=== PATIENT | female | born 1930 | race Caucasian/White ===

== ENCOUNTER 2017-02-01 10:09 | Outpatient (CLI) ==
[2015-10-25 09:52] VITALS: BMI 32.5
--- NOTE | 2017-02-01 11:39 | CT ---
Exam: CT head without contrast. HISTORY: Head injury, fall. Dizziness and nausea after passing out and hitting face January 24. Procedures: 5 mm contiguous axial images were obtained through the skull without the use of contras t. Comparison: MRI of the brain 03/26/[address] of the head 12/13/2007. FINDINGS: There is redemonstration of mild prominence of the bilateral lateral ventricles and cereb ral sulci. There is mild diffuse periventricular and deep white matter hypodensity.There is no intr acranial hemorrhage, mass effect, hydrocephalus, extra-axial fluid collection or midline shift. The ventricles and basal cisterns are patent. There is no evidence of acute large vessel infarct. Bone windows demonstrate normal aeration of the mastoid air cells and the visualized portions of the paranasal sinuses. Atherosclerotic calcifications are noted. There is no acute fracture. IMPRESSION: No acute intracranial process. 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
== END 2017-02-01 10:10 | disposition home or self-care (01) ==
LOC: RAD 10:09
PROVIDERS: ATTEND Internal Medicine
DX: S09.90XA Unspecified injury of head, initial encounter (principal); W19.XXXA Unspecified fall, initial encounter

== ENCOUNTER 2017-03-06 14:46 | Emergency (ER) ==
[2017-03-06 14:53] VITALS: BP 167/69; TEMP 98.5; BMI 31.7
--- NOTE | 2017-03-06 15:11 | ED.PDOC ---
General ED Provider: Dr. VERA PARISH JR Chief Complaint: Elbow Pain/Injury Stated Complaint: pt tripped on shoe and fell. has pain, swelling and bruising to right elbow. [ End ]3 hours 98.5 82 20 97% 167/69 8/10 Time Seen by Physician: 15:04 Mode of Arrival: Walk-In Information Source: Patient Exam Limitations: No limitations Primary Care Provider: FAUSTINO SCHWARTZ Nursing and Triage Documentation Reviewed and Agree: No Review of Systems - Review Of Systems Constitutional: Reports: No symptoms Eyes: Reports: No symptoms Ears, Nose, Mouth, Throat: Reports: No symptoms Respiratory: Reports: No symptoms Cardiac: Reports: No symptoms GI: Reports: No symptoms : Reports: No symptoms Musculoskeletal: Reports: Joint pain Skin: Reports: Bruising Neurological: Reports: No symptoms Endocrine: Reports: No symptoms Hematologic/Lymphatic: Reports: No symptoms All Other Systems: Other Past Medical History - Past Medical History Endocrine: Reports: DM 2, Hypothyroid Cardiovascular: Reports: Hypertension Respiratory: Reports: COPD Hematological: Reports: None Gastrointestinal: Reports: GERD Genitourinary: Reports: CKD Neuro/Psych: Reports: Anxiety, Depression, Other (sleep apnea) Musculoskeletal: Reports: Arthritis Cancer: Reports: None Last Menstrual Period: none - Surgical History General Surgical History: Reports: Orthopedic (knee replacement bilateral, rotator cuff surgery right shoulder) - Family History Family History: Reports: Unknown - Social History Smoking Status: Former smoker Hx Substance Use: No Alcohol Screening: None Physical Exam - Physical Exam Appearance: Well-appearing Pain Distress: Moderate Eyes: ANAHI, EOMI, Conjunctiva clear ENT: Ears normal, Nose normal, Oropharynx normal Neck: Supple Respiratory: Airway patent, Breath sounds clear, Breath sounds equal, Respirations nonlabored Cardiovascular: RRR, Pulses normal, No rub, No murmur GI/: Soft, Nontender, No masses, Bowel sounds normal, No Organomegaly Musculoskeletal: Normal strength, ROM intact, No edema, No calf tenderness, Edema (right olecranon bursae) Skin: Warm, Dry Neurological: Sensation intact, Motor intact, Reflexes intact, Cranial nerves intact, Alert, Oriented Critical Care Note - Critical Care Note Total Time (mins): 0 Course - Course Orders, Labs, Meds: Orders Category Date Time Status Splint [ED SPLINT APPLICATION] .ONCE EMERGENCY 03/06/17 15:41 Ordered ELBOW, RIGHT MIN 3 VIEWS Stat RADS 03/06/17 15:06 Completed Vital Signs: Temp Pulse Resp BP Pulse Ox 03/06/17 14:47 98.5 F 82 20 167/69 H 97 Departure - Departure Time of Disposition: 15:43 Disposition: HOME SELF-CARE Discharge Problem: Hematoma Bursitis of elbow Qualifiers: Elbow bursitis location: olecranon bursitis Laterality: right Qualifier Code: ( M70.21) Olecranon bursitis, right elbow Instructions: Elbow Bursitis (ED) Condition: Fair Pt referred to PMD for follow-up: Yes Additional Instructions: [place] for pain do not drive NSAIDS may make bruising worse(Advil aleve aspirin) (81 mg of aspirin once a day should not cause any problem) recommend orthopedic evaluation for drainage of bursa may obtain referral from PMD for orthopedic evaluation return if worse if fever over 101.0 Prescriptions: Hydrocodone Bit/Acetaminophen [[place] 5-325] 1 - 2 tab PO Q6HR PRN #12 tablet PRN Reason: pain Allergies/Adverse Reactions: Allergies Iodinated Contrast- Oral and IV Dye [Iodinated Contrast Media - IV Dye] Adverse Reaction (Verified 03/06/17 14:53) scopolamine Adverse Reaction (Verified 03/06/17 14:53) Home Medications: Ambulatory Orders Aspirin [Aspirin Chewable] 81 mg PO DAILYWM 04/07/14 Levothyroxine Sodium [Synthroid] 100 mcg PO DAILY 04/07/14 Lorazepam 1 mg PO BID 04/07/14 Omeprazole [Prilosec] 20 mg PO BID 04/07/14 Multivitamin [Multi-Vitamin Daily] 1 each PO DAILY 08/25/14 Losartan Potassium 100 mg PO DAILY 10/25/15 Hydrocodone Bit/Acetaminophen [[place] 5-325] 1 - 2 tab PO Q6HR PRN #12 tablet
--- NOTE | 2017-03-06 15:39 | DI ---
EXAM: Radiographs, right elbow HISTORY: Initial presentation for right elbow injury. COMPARISON: None available. TECHNIQUE: [place]. FINDINGS: Bone mineralization is decreased. There is no fracture or dislocation. The joint spaces are maintained. Extensive posterior soft tissue swelling noted. IMPRESSION: Extensive posterior soft tissue swelling without fracture or dislocation.
== END 2017-03-06 15:56 | disposition home or self-care (01) ==
LOC: ED 14:46
DX: S50.01XA Contusion of right elbow, initial encounter (principal); M70.21 Olecranon bursitis, right elbow; W01.0XXA Fall on same level from slipping, tripping and stumbling without subsequent striking against object, initial encounter
CPT/HCPCS: 99282

== ENCOUNTER 2017-04-22 11:14 | Emergency (ER) ==
[2017-04-22 11:21] VITALS: BP 158/75; TEMP 97.5; BMI 30.5
--- NOTE | 2017-04-22 11:45 | ED.PDOC ---
General ED Provider: Dr. KIZZY SAMAYOA Chief Complaint: Abnormal Labs Stated Complaint: Called by doctor's office because routine blood tests yesterday revealed a potassium level of 5.5. Patient denies any recent new symptoms. She does get muscle cramps but that has been going on unchanged for years. Unaware of any cardiac arrhytmias or chest pain. Does have a prn potassium pill which she last took 5 days ago. Time Seen by Physician: 11:38 Mode of Arrival: Walk-In Information Source: Patient Exam Limitations: No limitations Primary Care Provider: FAUSTINO SCHWARTZ Nursing and Triage Documentation Reviewed and Agree: Yes Miscellaneous Complaint Exam - Complex/Multi-System Complaint/Exam Onset/Duration: unknown Symptoms Are: Still present (asymptomatic) Initial Severity: None Current Severity: None Location of Pain: no pain Recent Echo/LV Function: No Respiratory Distress: None JVD Present: No Tachypnea Present: No Stridor Present: No Abdominal Findings: Present: Normal findings Meningeal Signs Positive: No Focal Weakness: Present: None Focal Sensory Loss: Present: None Gait: Normal Gag Reflex Present: Yes Babinski Sign: Negative Right, Negative Left Skin Findings: Present: Normal findings Joint Swelling Present: No In-Dwelling Device Present: No Differential Diagnosis: Other (hyperkalemia) Review of Systems - Review Of Systems Constitutional: Reports: No symptoms Eyes: Reports: No symptoms Ears, Nose, Mouth, Throat: Reports: No symptoms Respiratory: Reports: No symptoms Cardiac: Reports: No symptoms GI: Reports: No symptoms : Reports: No symptoms Musculoskeletal: Reports: No symptoms Skin: Reports: No symptoms Neurological: Reports: No symptoms Endocrine: Reports: No symptoms Hematologic/Lymphatic: Reports: No symptoms All Other Systems: Reviewed and Negative Past Medical History - Past Medical History Previously Healthy: Yes Endocrine: Reports: DM 2, Hypothyroid Cardiovascular: Reports: Hypertension Respiratory: Reports: COPD Hematological: Reports: None Gastrointestinal: Reports: GERD Genitourinary: Reports: CKD Neuro/Psych: Reports: Anxiety, Depression, Other (sleep apnea) Musculoskeletal: Reports: Arthritis Cancer: Reports: None Last Menstrual Period: n/a - Surgical History General Surgical History: Reports: Orthopedic (knee replacement bilateral, rotator cuff surgery right shoulder) - Family History Family History: Reports: Unknown - Social History Smoking Status: Former smoker Hx Substance Use: No Alcohol Screening: None Lives: Alone - Immunizations Tetanus Shot up to Date: No Influenza Vaccine within 12 Months: No Pneumococcal Vaccine up to Date: No Physical Exam - Physical Exam Appearance: Well-appearing, No pain distress, Well-nourished Ill-appearing: None Pain Distress: None Respiratory: Airway patent, Breath sounds clear, Breath sounds equal, Respirations nonlabored Cardiovascular: RRR, Pulses normal, No rub, No murmur GI/: Soft, Nontender, No masses, Bowel sounds normal, No Organomegaly Musculoskeletal: Normal strength, ROM intact, No edema, No calf tenderness Skin: Warm, Dry, Normal color Neurological: Sensation intact, Motor intact, Reflexes intact, Cranial nerves intact, Alert, Oriented Psychiatric: Affect appropriate, Mood appropriate Critical Care Note - Critical Care Note Total Time (mins): 0 Course - Course Hematology/Chemistry: 04/22/17 11:52 Orders, Labs, Meds: Lab Review 04/22/17 11:52 Sodium 137 Potassium 5.1 Chloride 109 H Carbon Dioxide 21 L Anion Gap 12.1 BUN 29 H Creatinine 1.76 H Estimated GFR (MDRD) 27.00 BUN/Creatinine Ratio 16.47 Glucose 97 Calcium 10.1 Orders Category Date Time Status BMP [BASIC METABOLIC PANEL] Stat LAB 04/22/17 11:52 Completed Vital Signs: Temp Pulse Resp BP Pulse Ox 04/22/17 11:15 97.5 F L 61 16 158/75 H 95 Departure - Departure Time of Disposition: 12:20 Disposition: HOME SELF-CARE Discharge Problem: No acute medical problems Instructions: Normal Exam (ED) Condition: Good Pt referred to PMD for follow-up: Yes (follow up with doctor as planned) Allergies/Adverse Reactions: Allergies Iodinated Contrast- Oral and IV Dye [Iodinated Contrast Media - IV Dye] Adverse Reaction (Verified 03/06/17 14:53) scopolamine Adverse Reaction (Verified 03/06/17 14:53) Home Medications: Ambulatory Orders Aspirin [Aspirin Chewable] 81 mg PO DAILYWM 04/07/14 Levothyroxine Sodium [Synthroid] 100 mcg PO DAILY 04/07/14 Lorazepam 1 mg PO BID 04/07/14 Multivitamin [Multi-Vitamin Daily] 1 each PO DAILY 08/25/14 Losartan Potassium 100 mg PO DAILY 10/25/15 Disposition Discussed With: Patient
[2017-04-22 12:16] LABS: ANION GAP 12.1; BUN/CREATININE RATIO 16.47; CALCIUM 10.1 mg/dL (8.2-10.2); CREATININE 1.76 mg/dL (0.60-1.30); POTASSIUM 5.1 mmol/L (3.5-5.10)
== END 2017-04-22 13:21 | disposition home or self-care (01) ==
LOC: ED 11:14
DX: E87.5 Hyperkalemia (principal)
CPT/HCPCS: 36415; 80048; 99282

== ENCOUNTER 2017-08-08 12:32 | Outpatient (CLI) | END 2017-08-08 12:33 | disposition home or self-care (01) | LOC: LAB 12:32 | PROVIDERS: ATTEND Emergency Medicine | DX: E11.9 Type 2 diabetes mellitus without complications (principal); J44.9 Chronic obstructive pulmonary disease, unspecified; E03.9 Hypothyroidism, unspecified; N18.2 Chronic kidney disease, stage 2 (mild); N32.81 Overactive bladder | CPT/HCPCS: 36415; 80053; 80061; 83036; 84443; 85025 ==

== ENCOUNTER 2017-10-23 13:10 | Outpatient (CLI) | payer OTHER | END 2017-10-23 13:11 | disposition home or self-care (01) | LOC: RHC-LAB 13:10 | PROVIDERS: ATTEND Emergency Medicine | DX: N18.2 Chronic kidney disease, stage 2 (mild) (principal); J44.9 Chronic obstructive pulmonary disease, unspecified; E03.9 Hypothyroidism, unspecified; R35.0 Frequency of micturition; R10.11 Right upper quadrant pain | CPT/HCPCS: 36415; 80053; 80061; 82150; 83690; 84443; 85025 ==

== ENCOUNTER 2017-10-26 08:48 | Outpatient (CLI) | payer OTHER ==
--- NOTE | 2017-10-26 10:11 | CT ---
EXAM: CT abdomen pelvis without contrast HISTORY: Right upper quadrant pain COMPARISON: 07/15/2014 TECHNIQUE: CT abdomen pelvis performed without intravenous contrast. Coronal and sagittal reformatt ed images obtained. FINDINGS: Mild subsegmental atelectasis and/or scarring at the lung bases. No free air. No acute a bnormalities of the bones. Degenerative change in the spine. Heart normal in size. Evaluation orga n parenchyma limited without contrast. Liver appears normal. Patient status post cholecystectomy. Mi ld prominence of the common bile duct is unchanged. Pancreas unremarkable. Granulomas calcification in the spleen. Spleen otherwise unremarkable. There is a stable right adrenal nodule measuring nega tive 7 HU and 1.8 cm. Left renal parapelvic cysts. No hydronephrosis or nephrolithiasis. Aorta norm al in caliber. Moderate atherosclerosis. Bladder unremarkable. Uterus unremarkable. Moderate hiat al hernia. Duodenal diverticulum. No dilated loops small bowel. Appendix appears normal. Colonic di verticulosis. Minimal fat-containing periumbilical hernia. No lymphadenopathy or ascites. No infl ammatory stranding identified in the abdomen or pelvis. IMPRESSION: 1. No acute abnormality identified in the abdomen or pelvis. 2. Colonic diverticulosis. Duodenal diverticulum. 3. Moderate hiatal hernia. 4. Right adrenal adenoma. 5. Status post cholecystectomy. Mild prominence of the common bile duct is unchanged and likely pos tsurgical. Findings can correlate with liver function tests. 6. Atherosclerosis.
== END 2017-10-26 08:49 | disposition home or self-care (01) ==
LOC: RAD 08:48
PROVIDERS: ATTEND Emergency Medicine
DX: R10.11 Right upper quadrant pain (principal)